=== PATIENT | male | born 1960 | race Caucasian/White ===

== ENCOUNTER 2024-03-09 20:59 | Emergency (ER) | payer OTHER ==
[2024-03-09] MEDS ORDERED: Boostrix 0.5 ML (Tdap) VIAL (>/=7 yrs of age) ONE (22:27)
[2024-03-09] MEDS ORDERED: Bupivacaine 0.25% 10 ML VIAL ONE (22:30)
== END 2024-03-10 02:02 | disposition home or self-care (01) ==
LOC: ERS 20:59
DX: S61.210A Laceration without foreign body of right index finger without damage to nail, initial encounter (principal); I10 Essential (primary) hypertension; W26.0XXA Contact with knife, initial encounter; Z23 Encounter for immunization
CPT/HCPCS: 12001; 90471; 90715; J0665